=== PATIENT | female | born 1955 | race Caucasian/White ===

== ENCOUNTER → 2019-07-25 | Outpatient (CLI) | payer BC | LOC: HYPER 13:20 | DX: I73.00 Raynaud's syndrome without gangrene (principal); R21 Rash and other nonspecific skin eruption; M35.3 Polymyalgia rheumatica; E53.8 Deficiency of other specified B group vitamins; D70.8 Other neutropenia; G25.81 Restless legs syndrome; M85.50 Aneurysmal bone cyst, unspecified site; M19.90 Unspecified osteoarthritis, unspecified site; G89.29 Other chronic pain; Z79.82 Long term (current) use of aspirin; Z90.10 Acquired absence of unspecified breast and nipple; Z90.710 Acquired absence of both cervix and uterus ==